=== PATIENT | female | born 1950 | race Caucasian/White ===

== ENCOUNTER 2021-08-22 07:37 | Inpatient (IN) | payer MEDICARE ==
[~2021-08-22] VITALS: Ht 165.1 cm; Wt 116.3 kg
[2021-08-22 08:36] LABS: BASOPHIL 0.3 % (0-2); EOSINOPHIL 0 % (0-7); HCT 37.6 % (37.0-47.0); HGB 12.1 g/dl (12.5-16.0); MCH 29.1 pg (25.0-31.0); MCHC 32.2 g/dL (32.0-36.0); MCV 90.4 fL (78.0-100.0); MONOCYTE 5.9 % (0-12); MPV 10.7 fL (6.0-9.5); NEUTROPHIL 84.3 % (41-80); NRBC 0; PLT 233 K/uL (150-400); RBC 4.16 M/uL (4.20-5.40); RDW 14.6 % (11.5-14.0); WBC 8.8 K/uL (4.0-10.5)
[2021-08-22 08:53] LABS: ALBUMIN 3.6 g/dL (3.4-5.0); BILIRUBIN - TOTAL 0.3 mg/dL (0.2-1.0); BUN/CREAT RATIO (CALC) 9.2 RATIO; CREATININE 1.31 mg/dL (0.51-0.95); GLOBULIN (CALCULATION) 3.9 g/dL; POTASSIUM 3.7 mmol/L (3.5-5.1); TOTAL PROTEIN 7.5 g/dL (6.4-8.2)
[2021-08-22 08:59] LABS: LACTIC ACID 1.1 mmol/L (0.4-1.9)
[2021-08-22 09:26] LABS: INFLUENZA A NAA NEGATIVE (NEGATIVE)
[2021-08-22 09:30] LABS: CORONAVIRUS 2019 SARS-COV-2 POSITIVE (NEGATIVE)
[2021-08-22 14:24] LABS: BILIRUBIN NEGATIVE (NEGATIVE); BLOOD TRACE-INTACT Ery/uL (NEGATIVE); CLARITY CLEAR (CLEAR); COLOR YELLOW (YELLOW); GLUCOSE (U) NORMAL (NORMAL); LEUKOCYTES NEGATIVE Leu/uL (NEGATIVE); NITRITE NEGATIVE (NEGATIVE); PROTEIN 2+ mg/dL (NEGATIVE)
[2021-08-22 14:41] LABS: BACTERIA 2+
[2021-08-22 14:42] LABS: GRANULAR CASTS TRACE; MUCOUS TRACE
[2021-08-22] MEDS ORDERED: PRILOSEC20 MG PO (19:21)
[2021-08-22] MEDS ORDERED: ALEVE220 M1 PO (19:23)
[2021-08-23 06:05] LABS: BASOPHIL 0.1 % (0-2); EOSINOPHIL 0 % (0-7); HCT 35.6 % (37.0-47.0); HGB 11.5 g/dl (12.5-16.0); LYMPHOCYTE 12.5 % (15-48); MCH 29.3 pg (25.0-31.0); MCHC 32.3 g/dL (32.0-36.0); MCV 90.8 fL (78.0-100.0); MONOCYTE 5.8 % (0-12); MPV 10.6 fL (6.0-9.5); NEUTROPHIL 81.3 % (41-80); NRBC 0; PLT 207 K/uL (150-400); RBC 3.92 M/uL (4.20-5.40); RDW 14.7 % (11.5-14.0); WBC 11.5 K/uL (4.0-10.5)
[2021-08-23 06:32] LABS: BUN/CREAT RATIO (CALC) 13.2 RATIO; CREATININE 1.21 mg/dL (0.51-0.95); POTASSIUM 4.1 mmol/L (3.5-5.1)
[2021-08-24 06:27] LABS: BASOPHIL 0.1 % (0-2); EOSINOPHIL 0 % (0-7); HCT 34.2 % (37.0-47.0); HGB 10.9 g/dl (12.5-16.0); MCH 28.8 pg (25.0-31.0); MCHC 31.9 g/dL (32.0-36.0); MCV 90.5 fL (78.0-100.0); MONOCYTE 3.6 % (0-12); MPV 10.7 fL (6.0-9.5); NEUTROPHIL 82.8 % (41-80); NRBC 0; PLT 209 K/uL (150-400); RBC 3.78 M/uL (4.20-5.40); RDW 14.7 % (11.5-14.0); WBC 7.5 K/uL (4.0-10.5)
[2021-08-24 06:55] LABS: IRON % SATURATION 10.4 %SAT (20-50)
[2021-08-24 07:33] LABS: BUN/CREAT RATIO (CALC) 21.7 RATIO; CREATININE 1.06 mg/dL (0.51-0.95)
[2021-08-25 05:59] LABS: BASOPHIL 0.1 % (0-2); EOSINOPHIL 0 % (0-7); HCT 37.1 % (37.0-47.0); HGB 11.6 g/dl (12.5-16.0); LYMPHOCYTE 13.2 % (15-48); MCH 28.9 pg (25.0-31.0); MCHC 31.3 g/dL (32.0-36.0); MCV 92.3 fL (78.0-100.0); MONOCYTE 5.9 % (0-12); MPV 10.5 fL (6.0-9.5); NEUTROPHIL 80.5 % (41-80); NRBC 0; PLT 221 K/uL (150-400); RBC 4.02 M/uL (4.20-5.40); RDW 14.8 % (11.5-14.0); WBC 7.6 K/uL (4.0-10.5)
[2021-08-25 06:57] LABS: BUN/CREAT RATIO (CALC) 20.7 RATIO; CREATININE 1.11 mg/dL (0.51-0.95)
[2021-08-26 05:48] LABS: BASOPHIL 0.1 % (0-2); EOSINOPHIL 0 % (0-7); HCT 34.6 % (37.0-47.0); HGB 11.2 g/dl (12.5-16.0); LYMPHOCYTE 14.4 % (15-48); MCH 28.9 pg (25.0-31.0); MCHC 32.4 g/dL (32.0-36.0); MCV 89.4 fL (78.0-100.0); MPV 10.9 fL (6.0-9.5); NEUTROPHIL 76.9 % (41-80); NRBC 0; PLT 242 K/uL (150-400); RBC 3.87 M/uL (4.20-5.40); RDW 14.6 % (11.5-14.0); WBC 8.9 K/uL (4.0-10.5)
[2021-08-26 06:06] LABS: BUN/CREAT RATIO (CALC) 20.4 RATIO; CREATININE 1.08 mg/dL (0.51-0.95)
[2021-08-26] MEDS ORDERED: PROVENTIL INH (07:58)
[2021-08-26] MEDS ORDERED: ZESTRIL5 MG PO (07:58)
[2021-08-26] MEDS ORDERED: NORVASC5 MG PO (07:58)
[2021-08-26] MEDS ORDERED: HCTZ25 MG PO (07:58)
[2021-08-26] MEDS ORDERED: ACETAMINOPHEN325 MG PO (07:58)
[2021-08-26] MEDS ORDERED: DEXAMETHASONE 2M2 MG PO (07:58)
--- NOTE | 2021-08-26 15:03 | NUR ---
6/10 Patient didn't require 02 at discharge per walk test.
== END 2021-08-26 12:45 | disposition home or self-care (01) | DRG 177 ==
LOC: FER 07:37 → FTCU 10:45 → FMS 10:45 → FTCU 14:43 → FMS 08-25 11:16
PROVIDERS: Emergency Medicine; ADMIT Family Medicine
PROC: XW033E5 Introduction of Remdesivir Anti-infective into Peripheral Vein, Percutaneous Approach, New Technology Group 5 (ICD-10-PCS; principal; 2021-08-22)
PROC: 3E0333Z Introduction of Anti-inflammatory into Peripheral Vein, Percutaneous Approach (ICD-10-PCS; 2021-08-22)
PROC: 8E0ZXY6 Isolation (ICD-10-PCS; 2021-08-22)
DX: U07.1 COVID-19 (principal); J96.01 Acute respiratory failure with hypoxia; J15.8 Pneumonia due to other specified bacteria; N17.9 Acute kidney failure, unspecified; K52.1 Toxic gastroenteritis and colitis; Z68.41 Body mass index [BMI] 40.0-44.9, adult; I10 Essential (primary) hypertension; D50.9 Iron deficiency anemia, unspecified; R73.9 Hyperglycemia, unspecified; K21.9 Gastro-esophageal reflux disease without esophagitis; T36.95XA Adverse effect of unspecified systemic antibiotic, initial encounter; K44.9 Diaphragmatic hernia without obstruction or gangrene; D73.5 Infarction of spleen; R79.1 Abnormal coagulation profile; E66.01 Morbid (severe) obesity due to excess calories; Z88.0 Allergy status to penicillin; Z98.51 Tubal ligation status; Z83.3 Family history of diabetes mellitus; Z99.81 Dependence on supplemental oxygen; Z91.14 Patient's other noncompliance with medication regimen
CPT/HCPCS: 36415; 36600; 70490; 71045; 71250; 71275; 80048; 80053; 81001; 82607; 82803; 83036; 83540; 83550; 83605; 83880; 84145; 84484; 85025; 85379; 86140; 87040; 87088; 87880; 93005; 94010; 97162; 97165; 97530-GP; 97535; C9399; J0360; J0456; J0696; J1100; J1650; J2916; J7030; J7050; J8540; U0002